=== PATIENT | female | born 1960 | race Caucasian/White ===

== ENCOUNTER 2024-04-21 19:21 | Emergency (ER) | payer OTHER ==
[~2024-04-21] VITALS: Ht 172.7 cm; Wt 54.9 kg
[2024-04-21 19:51] LABS: BASOPHILS # (AUTO) 0.1 K/UL (0.0-0.2); EOSINOPHILS # (AUTO) 0.2 K/uL (0.0-0.7); HEMATOCRIT 38.8 % (31.2-41.9); HEMOGLOBIN 13.1 g/dL (10.9-14.3); LYMPHOCYTES # (AUTO) 1.5 K/uL (0.8-4.8); LYMPHOCYTES % (AUTO) 18.6 % (20.5-51.5); MEAN CORPUSCULAR HEMOGLOBIN 34.5 uug (24.7-32.8); MEAN CORPUSCULAR HGB CONC 34 g/dL (32.3-35.6); MEAN CORPUSCULAR VOLUME 101.9 fL (75.5-95.3); MONOCYTES # (AUTO) 0.7 K/uL (0.1-1.30); MONOCYTES % (AUTO) 8.8 % (0.0-11.0); NEUTROPHILS # (AUTO) 5.6 K/uL (1.8-8.9); NEUTROPHILS % (AUTO) 69.6 % (38.5-71.5); PLATELET COUNT (AUTO) 381 K/uL (179-408); RED CELL DISTRIBUTION WIDTH 13.4 % (12.3-17.7)
[2024-04-21 20:03] LABS: CALCIUM 9.6 mg/dL (8.5-10.1); CARBON DIOXIDE 30 mmol/L (21-32); CHLORIDE 101 mmol/L (98-107); CREATININE 0.8 mg/dL (0.6-1.3); GLUCOSE 125 mg/dL (74-106); POTASSIUM 3.5 mmol/L (3.5-5.1); SODIUM SERUM 140 mmol/L (136-145); UREA NITROGEN, BLOOD 24 mg/dL (7-18)
[2024-04-21 20:05] LABS: DIFFERENTIAL COMMENT 1
[2024-04-21 20:11] LABS: ALANINE AMINOTRANSFERASE 43 U/L (14-59); ALKALINE PHOSPHATASE 52 U/L (50-136); ASPARTATE AMINOTRANSFERASE 28 U/L (15-37); BILIRUBIN,DIRECT 0.1 mg/dL (0.0-0.2); BILIRUBIN,TOTAL 0.3 mg/dL (0.2-1.0); TOTAL PROTEIN, SERUM 7.5 g/dL (6.4-8.2)
[2024-04-21] MEDS ORDERED: ONDANSETRON 4 MG/2 ML VIAL ONE ×2 (20:37→21:35)
[2024-04-21] MEDS ORDERED: HYDROMORPHONE 1 MG/1 ML DISP.SYRIN ONE (20:37)
[2024-04-21] MEDS: ONDANSETRON 4 MG/2 ML VIAL IV ONE ×2 (20:39→21:44)
[2024-04-21] MEDS: HYDROMORPHONE 1 MG/1 ML DISP.SYRIN IV ONE (20:56)
[2024-04-21] MEDS ORDERED: diphenhydrAMINE 50 MG/1 ML VIAL ONE (21:59)
[2024-04-21] MEDS ORDERED: METOCLOPRAMIDE HCL 10 MG/2 ML VIAL ONE (21:59)
[2024-04-21] MEDS: METOCLOPRAMIDE HCL 10 MG/2 ML VIAL IV ONE (22:03)
[2024-04-21] MEDS: diphenhydrAMINE 50 MG/1 ML VIAL IV ONE (22:03)
[2024-04-21] MEDS ORDERED: LORAZEPAM 2 MG/1 ML VIAL ONE (22:31)
[2024-04-21] MEDS: LORAZEPAM 2 MG/1 ML VIAL IV ONE (22:36)
[2024-04-22] MEDS ORDERED: HYDROMORPHONE 1 MG/1 ML DISP.SYRIN ONE (00:38)
[2024-04-22] MEDS ORDERED: CYCLOBENZAPRINE HCL 10 MG TABLET ONE (00:38)
[2024-04-22] MEDS: CYCLOBENZAPRINE HCL 10 MG TABLET PO ONE (00:40)
[2024-04-22] MEDS: HYDROMORPHONE 1 MG/1 ML DISP.SYRIN IV ONE (00:41)
[2024-04-22 01:15] VITALS: O2SAT 100
== END 2024-04-22 01:33 ==
LOC: ER 19:21
DX: I61.9 Nontraumatic intracerebral hemorrhage, unspecified (principal); R51.9 Headache, unspecified; R11.2 Nausea with vomiting, unspecified; R07.89 Other chest pain; F17.210 Nicotine dependence, cigarettes, uncomplicated; Z20.822 Contact with and (suspected) exposure to COVID-19
CPT/HCPCS: 99291; 96374; 96375; 70450; 99406; 87426; 80076; 80048; 82962; 85025; 85730; 84484; 36415; 71045; 93005; 96376 ×2; J1200; J2060; J2765; J2405 ×2; J1171 ×2; A4606; A4663